=== PATIENT | female | born 1955 | race African-American/Black ===

== ENCOUNTER 2018-09-22 13:01 | Emergency (ER) | payer OTHER ==
[~2018-09-22] VITALS: Ht 162.6 cm; Wt 55.0 kg
[2018-09-22 13:02] VITALS: BP 171/99
== END 2018-09-22 15:28 | disposition left against medical advice (07) ==
LOC: ER 13:01
DX: R51 Headache (principal); I10 Essential (primary) hypertension; Z53.21 Procedure and treatment not carried out due to patient leaving prior to being seen by health care provider